=== PATIENT | male | born 1935 | race Two or more races ===

== ENCOUNTER 2016-12-31 11:03 | Inpatient (IN) | payer MEDICARE, MEDICAID ==
[~2016-12-31] VITALS: Ht 170.2 cm; Wt 62.9 kg
[2016-12-31 12:17] LABS: BASOPHIL % 0.3 % (0-2); PLATELET COUNT 211 x10^3mcL (130-400); RED CELL DISTRIBUTION WIDTH 14.3 % (11.5-14.5)
[2016-12-31 12:27] LABS: CALCIUM 8.8 mg/dL (8.5-10.1); CARBON DIOXIDE 25.7 mmol/L (21-32); CHLORIDE SERUM 108 mmol/L (98-107); CREATININE SERUM 0.8 mg/dL (0.7-1.3); GLUCOSE SERUM 106 mg/dL (74-106); SODIUM SERUM 142 mmol/L (136-145)
[2016-12-31 12:32] LABS: ALBUMIN 3.6 g/dL (3.4-5.0); ALKALINE PHOSPHATASE 99 U/L (46-116); ALT/SGPT 21 U/L (16-63); AST/SGOT 22 U/L (15-37); BILIRUBIN TOTAL 0.58 mg/dL (0.20-1.00); CHOLESTEROL 196 mg/dL (<200); CHOLESTEROL/HDL RATIO 3.4; HDL CHOLESTEROL 57 mg/dL (40-60); LIPASE 138 IU/L (73-393); TOTAL PROTEIN, SERUM 7.3 g/dL (6.4-8.2); TRIGLYCERIDES 95 mg/dL (<150)
[2016-12-31 12:39] LABS: UA SPECIFIC GRAVITY 1.025 (1.005-1.035); microscopic required? YES; urine erythrocyte TRACE (NEGATIVE)
[2016-12-31 12:42] LABS: FREE T4 1.11 ng/dL (0.76-1.46); T4(THYROXINE) 9.4 ug/dL (4.7-13.3)
[2016-12-31 13:25] LABS: T3 TOTAL 1.14 ng/mL
[2016-12-31 16:07] VITALS: BP 161/87
[2016-12-31 22:03] VITALS: BP 136/76
[2017-01-01 05:02] VITALS: BP 141/86
[2017-01-01 06:33] LABS: BASOPHIL % 0.4 % (0-2); PLATELET COUNT 177 x10^3mcL (130-400)
[2017-01-01 06:34] LABS: CALCIUM 8.5 mg/dL (8.5-10.1); CARBON DIOXIDE 25.8 mmol/L (21-32); CHLORIDE SERUM 103 mmol/L (98-107); CREATININE SERUM 0.8 mg/dL (0.7-1.3); GLUCOSE SERUM 115 mg/dL (74-106); MAGNESIUM 1.9 mg/dL (1.8-2.4); PHOSPHOROUS 2.8 mg/dL (2.5-4.9); POTASSIUM SERUM 4.1 mmol/L (3.5-5.1); SODIUM SERUM 138 mmol/L (136-145)
[2017-01-01 06:55] LABS: RED CELL DISTRIBUTION WIDTH 14.6 % (11.5-14.5)
[2017-01-01 09:32] VITALS: BP 154/83
[2017-01-01 17:25] VITALS: BP 136/74
[2017-01-01 22:30] VITALS: BP 102/61
[2017-01-02 06:25] VITALS: BP 123/68
[2017-01-02 06:25] LABS: BASOPHIL % 0.1 % (0-2); PLATELET COUNT 160 x10^3mcL (130-400); RED CELL DISTRIBUTION WIDTH 14.5 % (11.5-14.5)
[2017-01-02 07:52] LABS: POTASSIUM SERUM 3.9 mmol/L (3.5-5.1); SODIUM SERUM 135 mmol/L (136-145)
[2017-01-02 07:53] LABS: CALCIUM 7.8 mg/dL (8.5-10.1); CARBON DIOXIDE 27.2 mmol/L (21-32); CHLORIDE SERUM 103 mmol/L (98-107); CREATININE SERUM 0.9 mg/dL (0.7-1.3); GLUCOSE SERUM 136 mg/dL (74-106); MAGNESIUM 1.7 mg/dL (1.8-2.4); PHOSPHOROUS 1.8 mg/dL (2.5-4.9)
[2017-01-02 09:56] VITALS: BP 123/65
[2017-01-02 14:00] VITALS: BP 116/63
[2017-01-02 18:03] VITALS: BP 138/75
[2017-01-02 21:59] VITALS: BP 148/77
[2017-01-03 05:41] VITALS: BP 132/69
[2017-01-03 07:01] LABS: CALCIUM 7.7 mg/dL (8.5-10.1); CARBON DIOXIDE 25.9 mmol/L (21-32); CHLORIDE SERUM 105 mmol/L (98-107); CREATININE SERUM 0.7 mg/dL (0.7-1.3); GLUCOSE SERUM 110 mg/dL (74-106); MAGNESIUM 1.9 mg/dL (1.8-2.4); PHOSPHOROUS 1.6 mg/dL (2.5-4.9); POTASSIUM SERUM 3.4 mmol/L (3.5-5.1); SODIUM SERUM 139 mmol/L (136-145)
[2017-01-03 09:42] VITALS: BP 124/76
[2017-01-03 13:49] VITALS: BP 135/72
[2017-01-03 17:47] VITALS: BP 154/58
[2017-01-03 21:52] VITALS: BP 138/78
[2017-01-04 06:55] VITALS: BP 121/67
[2017-01-04 09:36] VITALS: BP 141/71
[2017-01-04] MEDS ORDERED: TYL325 PO (12:58)
[2017-01-04] MEDS ORDERED: PER5 PO (12:58)
[2017-01-04] MEDS ORDERED: HEP5I SC (12:58)
[2017-01-04] MEDS ORDERED: COL100 PO (12:59)
[2017-01-04] MEDS ORDERED: ROB750 PO (12:59)
[2017-01-04 13:47] VITALS: Ht 170.2 cm; Wt 62.9 kg
[2017-01-04 14:52] VITALS: BP 141/71
== END 2017-01-04 17:28 | DRG 469 ==
LOC: ED 11:03 → DU 13:28 → MU 01-03 17:07
PROVIDERS: Neuromusculoskeletal Medicine, Sports Medicine; Specialist; ADMIT Family Medicine
PROC: 0SRR0JZ Replacement of Right Hip Joint, Femoral Surface with Synthetic Substitute, Open Approach (ICD-10-PCS; principal; 2017-01-01 10:30)
DX: S72.011A Unspecified intracapsular fracture of right femur, initial encounter for closed fracture (principal); N17.0 Acute kidney failure with tubular necrosis; H26.9 Unspecified cataract; Z68.21 Body mass index [BMI] 21.0-21.9, adult; W01.0XXA Fall on same level from slipping, tripping and stumbling without subsequent striking against object, initial encounter; Y92.481 Parking lot as the place of occurrence of the external cause
CPT/HCPCS: 83880; 84439; 97110-GP; 97116-GP; 97530-GP; C1776; J0690; J1170; J1644; J2270; J2405; J2704; J3010; J7030; J7120; Q0092